=== PATIENT | female | born 1965 | race Caucasian/White ===

== ENCOUNTER 2018-06-10 19:52 | Emergency (ER) | payer OTHER ==
[~2018-06-10] VITALS: Ht 160 cm; Wt 109.8 kg
[~2018-06-10 19:52] MED LIST: Crutch1 EACH MISC; DOCU100 PO; EXCEDRIN TENSION H/A PO; HYDR1TAB94 PO; IBUP800 PO
[2018-06-10] MEDS ORDERED: Voltaren100 GM TOP (21:24)
== END 2018-06-10 21:35 | disposition home or self-care (01) ==
LOC: ER 19:52
DX: M25.561 Pain in right knee (principal); F17.210 Nicotine dependence, cigarettes, uncomplicated; Z88.5 Allergy status to narcotic agent; W01.0XXA Fall on same level from slipping, tripping and stumbling without subsequent striking against object, initial encounter
CPT/HCPCS: 93971; 99283-25

== ENCOUNTER 2023-01-19 06:44 | Emergency (ER) | payer BC, OTHER ==
[~2023-01-19] VITALS: Ht 167.6 cm; Wt 83.9 kg
[~2023-01-19 06:44] MED LIST changes: +CYCL10 PO; +PRED20 PO; +Voltaren100 GM TOP
[2023-01-19] MEDS ORDERED: AZIT250 PO (07:10)
== END 2023-01-19 07:17 | disposition home or self-care (01) ==
LOC: ER 06:44
DX: H66.91 Otitis media, unspecified, right ear (principal); J98.8 Other specified respiratory disorders; Z79.52 Long term (current) use of systemic steroids; Z79.899 Other long term (current) drug therapy
CPT/HCPCS: 99283

== ENCOUNTER 2024-05-12 14:15 | Emergency (ER) | payer BC, OTHER ==
[~2024-05-12] VITALS: Ht 160 cm; Wt 110.2 kg
[~2024-05-12 14:15] MED LIST changes: +AZIT250 PO
[2024-05-12 14:17] VITALS: BP 160/93
[2024-05-12 15:39] LABS: Influenza A, PCR NEGATIVE (NEGATIVE); Influenza B, PCR NEGATIVE (NEGATIVE); Resp Syncytial Virus, PCR NEGATIVE (NEGATIVE)
[2024-05-12 15:41] LABS: SARS-Cov-2 (COVID-19) PCR, MMC POSITIVE (NEGATIVE)
[2024-05-12 15:48] LABS: BASOPHILS ABSOLUTE AUTO 0.02 K/mm3 (0.00-0.23); BASOPHILS PERCENT AUTO 0 % (0-2); EOSINOPHILS ABSOLUTE AUTO 0.21 K/mm3 (0.00-0.68); EOSINOPHILS PERCENT AUTO 3 % (0-6); Hematocrit 41.5 % (33.0-51.0); IMMATURE GRAN ABSOLUTE AUTO 0.01 K/mm3 (0.00-0.10); IMMATURE GRAN PERCENT AUTO 0 % (0-1); LYMPHOCYTES PERCENT AUTO 24 % (21-46); MONOCYTES PERCENT AUTO 8 % (4-13); Mean Corpuscular HGB 28.3 pg (26.0-34.0); Mean Corpuscular HGB Conc 33.7 g/dL (31.5-36.5); Mean Corpuscular Volume 84 fL (80-100); NEUTROPHILS ABSOLUTE AUTO 4.22 K/mm3 (1.96-9.15); NEUTROPHILS PERCENT AUTO 64 % (41-73); Platelet Count 200 K/mm3 (150-400); RDW Coefficient Variation 12.7 % (11.7-14.2); RDW Standard Deviation 38.3 fL (35.1-46.3); Red Blood Cell Count 4.94 M/mm3 (3.80-5.20); White Blood Cell Count 6.56 K/mm3 (4.00-11.30)
[2024-05-12 16:09] LABS: Albumin, Blood 3.6 g/dL (3.4-5.0); Bilirubin, Total 0.9 mg/dL (0.1-1.0); Bun/Creatinine Ratio 13.6 (12.0-20.0); Calcium, Blood 8.5 mg/dL (8.5-10.1); Creatinine, Blood 0.81 mg/dL (0.40-1.00); Globulin, Blood 3.6 g/dL (2.2-4.0); Potassium, Blood 3.7 mmol/L (3.5-5.5); Total Protein, Blood 7.2 g/dL (6.4-8.2)
[2024-05-12] MEDS ORDERED: ESCI10 PO (16:22)
== END 2024-05-12 16:41 | disposition home or self-care (01) ==
LOC: ER 14:15
PROVIDERS: Student in an Organized Health Care Education/Training Program
DX: U07.1 COVID-19 (principal); I48.91 Unspecified atrial fibrillation; F17.210 Nicotine dependence, cigarettes, uncomplicated; Z88.5 Allergy status to narcotic agent; Z88.8 Allergy status to other drugs, medicaments and biological substances; Z79.899 Other long term (current) drug therapy
CPT/HCPCS: 0241U; 71046; 80053; 85025; 99283-25

== ENCOUNTER 2024-09-15 00:26 | Emergency (ER) | payer BC, OTHER ==
[~2024-09-15] VITALS: Ht 160 cm; Wt 108.9 kg
[~2024-09-15 00:26] MED LIST changes: +ESCI10 PO
[2024-09-15] MEDS ORDERED: Naproxen 250 MG TAB PO ONE (00:50)
[2024-09-15 00:51] VITALS: BP 175/88
[2024-09-15] MEDS ORDERED: HYDR1TAB94 PO (01:40)
== END 2024-09-15 02:20 | disposition home or self-care (01) ==
LOC: ER 00:26
DX: S82.64XA Nondisplaced fracture of lateral malleolus of right fibula, initial encounter for closed fracture (principal); W18.2XXA Fall in (into) shower or empty bathtub, initial encounter; I48.91 Unspecified atrial fibrillation; F17.210 Nicotine dependence, cigarettes, uncomplicated; Z88.5 Allergy status to narcotic agent; Z88.8 Allergy status to other drugs, medicaments and biological substances; Z79.899 Other long term (current) drug therapy
CPT/HCPCS: 29515; 73610; 99283-25; A9270

== ENCOUNTER 2025-02-10 20:17 | Emergency (ER) | payer BC, OTHER ==
[~2025-02-10] VITALS: Ht 160 cm; Wt 111.1 kg
[2025-02-10 20:22] VITALS: BP 166/103
[2025-02-10 21:20] LABS: Influenza A, PCR NEGATIVE (NEGATIVE); Influenza B, PCR NEGATIVE (NEGATIVE); Resp Syncytial Virus, PCR NEGATIVE (NEGATIVE); SARS-Cov-2 (COVID-19) PCR, MMC NEGATIVE (NEGATIVE)
== END 2025-02-10 23:11 | disposition home or self-care (01) ==
LOC: ER 20:17
PROVIDERS: Physician Assistant
DX: J06.9 Acute upper respiratory infection, unspecified (principal); B97.89 Other viral agents as the cause of diseases classified elsewhere; F17.210 Nicotine dependence, cigarettes, uncomplicated; Z88.5 Allergy status to narcotic agent; Z88.8 Allergy status to other drugs, medicaments and biological substances; Z79.899 Other long term (current) drug therapy
CPT/HCPCS: 0241U; 99283